=== PATIENT | female | born 1955 | race Caucasian/White ===

== ENCOUNTER → 2016-11-27 | Outpatient (CLI) | payer BC ==
[~2016-11-27] MED LIST: ALEVE220 M1 PO; AMLODIPINE BESYL5 MG PO; CALCIUM MAGNES1 EACH PO; FISH OIL 1,2001 EAC4 PO; IBUPROFEN PO; OSTEO BI-FLEX1 EAC1 PO; PRINIVIL20 M1 PO; VICODIN 5/1 TAB 5/50 PO; WOMEN'S DAILY1 EAC4 PO
--- NOTE | ~2016-11-27 | CR97 ---
[facility] A Service of [facility] RADIOLOGY TEXT RESULTS PATIENT: ESTELLE SANTOS LOCATION: [facility] : 59 UNIT #: [id number] AGE: [address]: Elver Romero MD SEX: F ORDER DR: [id number] [place] [id number] [place], [place] [address] [id number] O MR#: [id number] Acc #: [id number] NAME: ESTELLE SANTOS : 1955 SEX: F STUDY DATE/TIME: 11/27/2016 8:15 UNIT: [facility] ROOM: STUDY DESCRIPTION: CR Esophagram Attending Physician: Elver Romero M.D. Referring Physician: Elver Romero M.D. Ordering Physician: Elver Romero M.D. Primary Care Physician: Art Bartlett M.D. MEDICAL IMAGING REPORT This report is preliminary unless electronic signature is present EXAM Single contrast barium esophagram INDICATION Morbid obesity and shortness of breath. Patient is to undergo laparoscopic gastric banding procedure. TECHNIQUE Patient was administered thin barium and multiple fluoroscopic images were obtained. FINDINGS Initial house carpenter helper image was unremarkable. Patient's thoracic esophagus appears of normal caliber with no evidence of stricture or mass lesion. Patient did require some additional secondary contractions for full stripping of the esophagus. No definite hiatal hernia was seen. A total of 11 fluoroscopic images were obtained. Total fluoroscopy time was 0.6 minutes. IMPRESSION Patient did require some secondary contractions for full stripping of the thoracic esophagus. She was also noted to have some spontaneous reflux into the xnu-si-wxlul thoracic esophagus while in the prone and RODRIGUEZ position. Study was otherwise unremarkable. Dictated by... Kandace Gordon M.D. THIS IS AN ELECTRONICALLY VERIFIED REPORT Kandace Gordon M.D. at 11/30/2016 4:48 PM AFF/mjs [facility] A Service of [facility] RADIOLOGY TEXT RESULTS PATIENT: ESTELLE SANTOS LOCATION: [facility] #: [id number] : 59 UNIT #: [id number] AGE: [address]: Elver Romero MD SEX: F ORDER DR: TD: 11/30/2016 08:22 JOB #: [id number] MEDICAL IMAGING REPORT Page 1 of 1 COPY
--- NOTE | ~2016-11-27 | EKG ---
PATIENT: ESTELLE SANTOS UNIT #: [id number] Ventricular Rate: 56 BPM Atrial Rate: 56 BPM P-R Interval: 182 ms QRS Duration: 84 ms Q-T Interval: 398 ms QTC Calculation(Bezet): 384 ms P Bronston: 62 degrees Calculated R Bronston: 27 degrees Calculated T Bronston: 35 degrees Diagnosis Line: Sinus bradycardia Diagnosis Line: Otherwise normal ECG Diagnosis Line: Diagnosis Line: Confirmed by ANGEL LUIS BRYAN MD ([id number]) on Diagnosis Line: 11/28/2016 4:24:44 PM INTERPRETING MD: RANDI GRIFFIN
--- NOTE | ~2016-11-27 | CR63 ---
[facility] A Service of [facility] RADIOLOGY TEXT RESULTS PATIENT: ESTELLE SANTOS [facility] [id number] : 59 UNIT #: [id number] AGE: [address]: Elver Romero MD SEX: F ORDER DR: [id number] [facility] [address]. [place], [place] [address] [id number] O MR#: [id number] Acc #: [id number] NAME: ESTELLE SANTOS. : 1955 SEX: F STUDY DATE/TIME: 11/27/2016 7:41 UNIT: [facility] ROOM: STUDY DESCRIPTION: CR Chest 2 View Attending Physician: Elver Romero M.D. Referring Physician: Elver Romero M.D. Ordering Physician: Elver Romero M.D. Primary Care Physician: Art Bartlett M.D. MEDICAL IMAGING REPORT This report is preliminary unless electronic signature is present EXAM PA and lateral chest Date: 11/27/2016 HISTORY 61-year-old female undergoing preop evaluation for gastric band placement. Morbid obesity. Shortness of breath today. HISTORY Heartburn. Hypertension. COMPARISON PA and lateral chest 04/29/2010. FINDINGS Clear lungs. Normal heart size. No pleural effusion or pneumothorax. Pulmonary vascular distribution is normal. Endplate osteophyte formation is present in the msj-gv-optul thoracic spine. IMPRESSION No acute chest findings. Dictated by... Yarelis Marrero M.D. THIS IS AN ELECTRONICALLY VERIFIED REPORT Yarelis Marrero M.D. at 11/30/2016 8:31 AM ERIC/jie TD: 11/27/2016 08:57 JOB #: [id number] [facility] A Service of [facility] RADIOLOGY TEXT RESULTS PATIENT: ESTELLE SANTOS [facility] [id number] : 59 UNIT #: [id number] AGE: [address]: Elver Romero MD SEX: F ORDER DR: MEDICAL IMAGING REPORT Page 1 of 1 COPY
[2016-11-27 09:33] LABS: HEMOGLOBIN 13.3 gm/dL (12.0-16.0); MEAN CELL VOLUME 86.3 FL (83-96); MEAN CORPUSCULAR HGB CONC 32.5 g/dL (30-36); RED BLOOD COUNT 4.75 X10e (3.90-5.30); RED CELL DISTRIBUTION WIDTH 14.5 % (11.0-15.5)
[2016-11-27 10:28] LABS: ALBUMIN SERUM 3.9 g/dL (3.5-5.0); BILIRUBIN,TOTAL 0.5 mg/dL (0.2-2.0); CALCIUM SERUM 9.2 mg/dL (8.4-10.2); CREATININE SERUM 0.6 mg/dL (0.6-1.4); GLOM FILT RATE Estimated 99.8 mL/min (>60); POTASSIUM 4.7 mmol/L (3.5-5.1); PROTEIN TOTAL SERUM 6.8 g/dL (6.0-8.3)
== END | disposition home or self-care (01) ==
LOC: CRAD 07:23 → CAMB 09:00
PROVIDERS: Surgery
DX: Z01.818 Encounter for other preprocedural examination (principal); E66.01 Morbid (severe) obesity due to excess calories
CPT/HCPCS: 36415; 71020; 74220; 80053; 80061; 84443; 85027; 93005

== ENCOUNTER → 2016-12-09 | Day surgery (SDC) | payer BC ==
--- NOTE | ~2016-12-09 | CR7 ---
[facility] A Service of [facility] RADIOLOGY TEXT RESULTS PATIENT: ESTELLE SANTOS LOCATION: [facility] : 59 UNIT #: [id number] AGE: [address]: Elver Romero MD SEX: F ORDER DR: [id number] [facility] [address] [place], [place] [address] [id number] O MR#: [id number] Acc #: [id number] NAME: ESTELLE SANTOS : 1955 SEX: F STUDY DATE/TIME: 12/09/2016 10:17 UNIT: [facility] ROOM: STUDY DESCRIPTION: CR Abdomen Single AP View Attending Physician: Elver Romero M.D. Ordering Physician: Elver Romero M.D. Primary Care Physician: Art Bartlett M.D. MEDICAL IMAGING REPORT This report is preliminary unless electronic signature is present EXAM KUB 12/09/2016 INDICATION Gastric band placement today. FINDINGS Supine view of the abdomen was obtained. Gastric band is present with a supine phi angle of 63 degrees. Bowel gas pattern is normal. Port is in the left lower abdomen. IMPRESSION Gastric band in place with a phi angle of 63 degrees. Dictated by... Kmiani Valdivia Jr., M.D. THIS IS AN ELECTRONICALLY VERIFIED REPORT Kimani Valdivia Jr., M.D. at 12/09/2016 4:24 PM MANJEET/carol TD: 12/09/2016 14:11 JOB #: [id number] MEDICAL IMAGING REPORT Page 1 of 1 COPY
--- NOTE | ~2016-12-09 | OR ---
Unit #: [id number] #: [id number] Patient: ESTELLE SANTOS [id number] [address] [address] [id number] O MR#: [id number] NAME: ESTELLE SANTOS ROOM: Date of Procedure: 12/09/2016 Admission Date: 12/09/2016 Surgeon: Elver Romero M.D. : 1955 Attending Physician: Elver Romero M.D. Primary Care Physician: Art Bartlett M.D. OPERATIVE REPORT PREOPERATIVE DIAGNOSIS Chronic morbid obesity with BMI of 37. POSTOPERATIVE DIAGNOSES 1. Chronic morbid obesity with BMI of 37. 2. Paraesophageal hiatal hernia. PROCEDURES PERFORMED 1. Laparoscopic adjustable gastric band. 2. Laparoscopic paraesophageal hiatal hernia repair. ASSISTANT Jani Malloy M.D. ANESTHESIA General endotracheal anesthesia. ESTIMATED BLOOD LOSS Minimal. IV FLUIDS 800 crystalloid. COMPLICATIONS None. INDICATIONS FOR PROCEDURE The patient is a 61-year-old with chronic morbid obesity. DESCRIPTION OF PROCEDURE The patient was taken to the operating room and placed in supine position. General anesthesia was induced. The abdomen was prepped and draped. A 3-cm incision was then made left of the midline. A 10-mm Visiport was then placed intraabdominal under direct vision. The abdomen was insufflated to 15 mmHg with CO2. The patient was then placed in a steep reversed Trendelenburg. General inspection of the abdomen revealed what appeared to be a paraesophageal hernia. This was identified with a defect at the diaphragm using anterior palpation with the instrument. We then made a small incision in the subxiphoid region. A Greer liver retractor was then placed intraabdominal and used to retract the left lobe of the liver upward to further expose the paraesophageal hernia and GE junction. I then placed a 5-mm port in the right upper quadrant, a 10-mm Unit #: [id number] #: [id number] Patient: ESTELLE SANTOS port in the left upper quadrant, and another 5-mm port in the left lower quadrant. The stomach was retracted medial and downward. Upon retracting the stomach, we took down the paraesophageal ligament, exposing the right and left vicente at the paraesophageal hernia. Any hernia sac was reduced. We then repaired the paraesophageal hernia using interrupted #0 Ethibond sutures in a bzickw-cp-plzwf type fashion. This formed a snug repair to the anterior esophagus. We then retracted the stomach medially and further exposed the angle of His using Bovie electrocautery. The stomach was then retracted laterally. We then took down the hepatogastric ligament with Bovie electrocautery. This exposed the right vicente. Using blunt dissection, I created a retrogastric tunnel from this point to the angle of His. The band was then placed intraabdominal through the 10-mm port site. This was then brought through the retrogastric tunnel in a pars flaccida technique. The band was then closed anteriorly to form a 20-mL to 25-mL anterior gastric pouch. The fundus was then secured to the anterior pouch to prevent movement around the stomach using two interrupted #0 Ethibond sutures. A third suture was then used as a gathering stitch from the lesser curve to the anterior stomach, gathering and imbricating the remaining fundus of the stomach. The tubing was then brought out through the midline 10-mm port site. All ports and the Greer liver retractor were removed under direct vision with no evidence of abdominal hemorrhage. A polypropylene mesh was then secured to the posterior face of the laparoscopic band port. This was secured using #0 Ethibond suture. This was then cut to shape. The port was then connected to the tubing and placed into a subcutaneous pocket just anterior to the rectus sheath. Its position was then confirmed. All tubing was then placed intraabdominal. The wounds were then closed with interrupted 4-0 Vicryl. The patient tolerated the procedure well and was sent to the recovery room in good condition. Dictated by... Paul Vila/kris TD: 12/09/2016 18:10 JOB #: [id number] OPERATIVE REPORT Page 1 of 1 X Elver Romero MD PROCEDURE OPERATIVE NOTE
== END | disposition home or self-care (01) ==
LOC: CSUR 06:25
DX: E66.01 Morbid (severe) obesity due to excess calories (principal); K44.9 Diaphragmatic hernia without obstruction or gangrene; M17.0 Bilateral primary osteoarthritis of knee; E78.5 Hyperlipidemia, unspecified; K21.9 Gastro-esophageal reflux disease without esophagitis; I10 Essential (primary) hypertension; Z68.37 Body mass index [BMI] 37.0-37.9, adult; Z72.4 Inappropriate diet and eating habits; Z86.010 Personal history of colon polyps; Z87.891 Personal history of nicotine dependence; Z82.49 Family history of ischemic heart disease and other diseases of the circulatory system; Z91.048 Other nonmedicinal substance allergy status; Z79.1 Long term (current) use of non-steroidal anti-inflammatories (NSAID); Z79.899 Other long term (current) drug therapy; Z90.710 Acquired absence of both cervix and uterus; Z98.51 Tubal ligation status; Z90.49 Acquired absence of other specified parts of digestive tract; Z98.890 Other specified postprocedural states
CPT/HCPCS: 74000; C1781; C1887; J0330; J0690; J1650; J1885; J2250; J2370; J2405; J2710; J3010